=== PATIENT | female | born 1970 | race Caucasian/White ===

== ENCOUNTER 2023-01-05 20:41 | Emergency (ER) | payer BC ==
[~2023-01-05] VITALS: Ht 167.6 cm; Wt 118.2 kg
[~2023-01-05 20:41] MED LIST: AMPH20CA3 PO
[2023-01-05 20:57] VITALS: BP 172/79
[2023-01-05] MEDS ORDERED: oxyCODONE/APAP 10/325mg tablet PO ONE (22:25)
[2023-01-05] MEDS ORDERED: ketorolac trometh inj. 60 MG/2 ML VIAL IM ONE (22:25)
[2023-01-05] MEDS ORDERED: OXYC-150 PO (22:30)
== END 2023-01-05 22:44 | disposition home or self-care (01) ==
LOC: ER 20:42
DX: M25.512 Pain in left shoulder (principal); F17.200 Nicotine dependence, unspecified, uncomplicated
CPT/HCPCS: 73030; 96372; 99283; J1885